=== PATIENT | male | born 1955 | race Caucasian/White ===

== ENCOUNTER 2017-10-22 08:32 | Emergency (ER) | payer BC ==
[~2017-10-22] VITALS: Ht 162.6 cm; Wt 70.7 kg
[~2017-10-22 08:32] MED LIST: ASPI325T32 PO; ATOR20TA38 PO; LOSA25TA5 PO; METO-335 PO
[2017-10-22 08:36] VITALS: Ht 162.6 cm; Wt 70.7 kg
--- NOTE | 2017-10-22 09:02 | RADRPT ---
PROCEDURE: XR Chest. CLINICAL INDICATION: Chest pain TECHNIQUE: Single portable view of the chest was obtained COMPARISON: CR CHEST 07/08/2016 FINDINGS: The heart and mediastinum are within normal limits. There are mild bibasilar atelectatic changes. The lungs are otherwise clear. There is no pleural effusion or pneumothorax. RPTAT: AA IMPRESSION: Mild bibasilar linear atelectatic changes. .Sherman Thurman MD, MD Date Time Electronically viewed and signed by .Sherman Thurman MD, on 10/22/2017 09:02 .S/
[2017-10-22 09:03] LABS: BASOPHIL # 0.1 10^3/ul (0.0-0.1); BASOPHILS % 0.7 % (0.0-2.0); EOSINOPHILS # 0.1 10^3/ul (0.0-0.5); EOSINOPHILS % 1.5 % (0.0-7.0); HEMATOCRIT 41.3 % (42.0-52.0); HEMOGLOBIN 13.1 g/dl (14.0-18.0); LYMPHOCYTES # 2.2 10^3/ul (0.8-2.9); LYMPHOCYTES % 32.2 % (15.0-51.0); MEAN CORPUSCULAR HGB CONC 31.7 g/dl (32.0-37.0); MEAN CORPUSCULAR VOLUME 85.2 fl (82.0-101.0); MEAN PLATELET VOLUME 12.4 fl (7.4-10.4); MONOCYTE # 0.4 10^3/ul (0.3-0.9); MONOCYTES % 5.7 % (0.0-11.0); NEUTROPHIL # 4.1 10^3/ul (1.6-7.5); NEUTROPHILS % 59.8 % (39.0-77.0); PLATELET COUNT 152 10^3/UL (140-415); RED BLOOD COUNT 4.85 10^6/ul (4.70-6.10); RED CELL DISTRIBUTION WIDTH 14.9 % (11.5-14.5); WHITE BLOOD COUNT 6.9 10^3/ul (4.8-10.8)
[2017-10-22 09:20] LABS: ANION GAP 18 (8-16); BLOOD UREA NITROGEN 11 mg/dl (7-20); CALCIUM 9.7 mg/dl (8.4-10.2); CARBON DIOXIDE 27 mmol/L (21-31); CHLORIDE 103 mmol/L (97-110); CREATININE 1.16 mg/dl (0.61-1.24); GLUCOSE 107 mg/dl (70-220); POTASSIUM 4.1 mmol/L (3.5-5.1); SODIUM 144 mmol/L (135-144)
[2017-10-22 09:41] LABS: TROPONIN-I < 0.012 ng/ml (0.00-0.12)
[2017-10-22] MEDS ORDERED: ASPI-664 PO (09:57)
[2017-10-22] MEDS ORDERED: ATOR80TA75 PO (09:59)
--- NOTE | 2017-10-22 10:03 | ERD ---
ER Documentation Chief Complaint Chief Complaint chest pain x3 days, hx stent 1 year ago HPI This is a very pleasant 62-year-old gentleman with a family interpreting. The patient has a history of cardiac disease. He states over the last several weeks he has noted some chest pain. It is intermittent and left-sided radiating to the left shoulder. The patient states that it comes and goes and only lasts 1 second. He denies any pleuritic pain shortness of breath or dyspnea on exertion. No calf swelling. He is asymptomatic over the past 24 hours. He took aspirin early this morning. ROS All systems reviewed and are negative except as per history of present illness. Medications Home Meds Reported Medications Atorvastatin* (Atorvastatin*) 80 Mg Tablet, 80 MG PO QHS, #30 TAB 10/22/17 Aspirin (Low Dose Aspirin) 81 Mg Tablet.dr, 81 MG PO DAILY, #30 TAB 10/22/17 Metoprolol Succinate* (Toprol XL*) 25 Mg Tab.sr.24h, 25 MG PO DAILY, #30 TAB 07/08/16 Discontinued Reported Medications Losartan Potassium* (Losartan Potassium*) 25 Mg Tablet, 25 MG PO DAILY, TAB 07/08/16 Atorvastatin Calcium* (Atorvastatin Calcium*) 20 Mg Tablet, 20 MG PO QHS, #30 TAB 07/08/16 Aspirin* (Aspirin* EC) 325 Mg Tab, 325 MG PO DAILY, TAB 07/08/16 Allergies Allergies: Coded Allergies: No Known Drug Allergies (Verified Allergy, Mild, 10/22/17) PMhx/Soc History of Surgery: Yes (stent placement s/p clogged artium) Anesthesia Reaction: No Hx Neurological Disorder: No Hx Respiratory Disorders: No Hx Cardiac Disorders: Yes (HTN,high cholesteral) Hx Psychiatric Problems: No Hx Miscellaneous Medical Probl: No Hx Alcohol Use: No Hx Substance Use: No Hx Tobacco Use: No Smoking Status: Unknown if ever smoked FmHx Family History: No diabetes Physical Exam Vitals Vital Signs Date Time Temp Pulse Resp B/P Pulse Ox O2 Delivery O2 Flow Rate FiO2 10/22/17 11:21 52 18 136/64 100 Room Air 10/22/17 08:36 97.8 57 18 149/77 100 Physical Exam General: Well developed, well nourished, no acute distress Head: Normocephalic, atraumatic. Eyes: Pupils equally reactive, EOM intact ENT: Moist mucous membranes Neck: Supple, no lymphadenopathy Respiratory: Lungs clear bilaterally, no distress Cardiovascular: RRR, no murmurs, rubs, or gallops Abdominal: Soft, non-tender, non-distended, no peritoneal signs : Deferred MSK: No edema, no unilateral swelling, 5/5 strength Neurologic: Alert and oriented, moving all extremities, normal speech, no focal weakness, no cerebellar signs Skin: No rash Psych: Normal mood Result Diagram: 10/22/17 0850 10/22/17 0850 Results 24 hrs Laboratory Tests Test 10/22/17 08:50 10/22/17 12:30 White Blood Count 6.910^3/ul Red Blood Count 4.8510^6/ul Hemoglobin 13.1g/dl Hematocrit 41.3% Mean Corpuscular Volume 85.2fl Mean Corpuscular Hemoglobin 27.0pg Mean Corpuscular Hemoglobin Concent 31.7g/dl Red Cell Distribution Width 14.9% Platelet Count 90350^3/UL Mean Platelet Volume 12.4fl Neutrophils % 59.8% Lymphocytes % 32.2% Monocytes % 5.7% Eosinophils % 1.5% Basophils % 0.7% Nucleated Red Blood Cells % 0.0/100WBC Neutrophils # 4.110^3/ul Lymphocytes # 2.210^3/ul Monocytes # 0.410^3/ul Eosinophils # 0.110^3/ul Basophils # 0.110^3/ul Nucleated Red Blood Cells # 0.010^3/ul Sodium Level 144mmol/L Potassium Level 4.1mmol/L Chloride Level 103mmol/L Carbon Dioxide Level 27mmol/L Anion Gap 18 Blood Urea Nitrogen 11mg/dl Creatinine 1.16mg/dl Glucose Level 107mg/dl Calcium Level 9.7mg/dl Troponin I < 0.012ng/ml < 0.012ng/ml Procedures/MDM EKG, MONITORS, & DIAGNOSTIC IMAGING: EKG: I reviewed and interpreted a 12-lead EKG. Rhythm: Sinus bradycardia Ectopy: None Intervals: No abnormalities ST segments: No elevations or depressions T waves: No contiguous inversions Repeat EKG: EKG: I reviewed and interpreted a 12-lead EKG. Rhythm: Sinus bradycardia Ectopy: None Intervals: No abnormalities ST segments: No elevations or depressions T waves: No contiguous inversions Chest x-ray: I reviewed and interpreted a 1 view of the chest Mediastinum: No enlargement Cardiac silhouette: No cardiomegaly Airspace: Clear lung penn bilaterally without evidence of pneumothorax Bones: No evidence of fracture LAB INTERPRETATION: Negative troponin 2 MEDICAL DECISION MAKING: The patient's history, physical exam and clinical presentation is concerning for possible cardiogenic etiology and acute coronary syndrome. However, the patient's description of symptoms are very atypical and subcu. He has not had pain in 24 hours. Based on the patient's clinical exam and history and risk factors, I have a much lower clinical concern for pulmonary embolism, acute aortic dissection, pneumothorax, pneumonia, cardiac tamponade HEART Score: 4 MACE Rate: Upwards of 16.6% Shared Decision Making: We had a conversation regarding risk stratification, MACE rate, and the risks, benefits, alternatives of disposition planning options. Disposition planning: I strongly recommend that the patient be admitted given his risk profile. Patient would like a 3 hour delta troponin and discharge. He verbalizes the understanding of his Mace rate and has capacity. ER COURSE: The patient remains asymptomatic. He took his aspirin prior to arrival. The patient understands the risks of outpatient management despite his cardiac history. He was advised to follow-up with primary care physician and return for any worsening symptoms. He understands that my recommendation is for hospitalization but has made a informed medical decision. I kept the patient and/or family informed of laboratory and diagnostic imaging results throughout the emergency room course. DISPOSITION PLAN: We discussed follow up with the patient's primary care doctor within 24 to 48 hours as needed. We also discussed return to the emergency room for worsening symptoms or worsening condition. Outpatient referral: [None required] Discharge Medications: None required Departure Diagnosis: Primary Impression: Chest pain Chest pain type: unspecified Qualified Code: R07.9 - Chest pain, unspecified type Condition: KAIN Gamble MD Oct 22, 2017 10:02
[2017-10-22 13:42] VITALS: BP 133/72; PULSE 55; RESP 18; TEMP 97.9
[2017-10-22 15:33] LABS: CK-MB 1.2 ng/ml (0.0-2.4)
== END 2017-10-22 17:30 | disposition home or self-care (01) ==
LOC: E/R 08:32
DX: R07.9 Chest pain, unspecified (principal); R40.2252 Coma scale, best verbal response, oriented, at arrival to emergency department; I10 Essential (primary) hypertension; R40.2142 Coma scale, eyes open, spontaneous, at arrival to emergency department; R40.2362 Coma scale, best motor response, obeys commands, at arrival to emergency department; Z98.61 Coronary angioplasty status; Z79.82 Long term (current) use of aspirin
CPT/HCPCS: 36415; 71010; 80048; 82550; 82553; 84484; 85025; 93005

== ENCOUNTER 2018-05-12 20:14 | Emergency (ER) | END 2018-05-13 00:45 | disposition home or self-care (01) ==